=== PATIENT | male | born 1955 | race African-American/Black ===

== ENCOUNTER 2022-06-28 03:28 | Inpatient (IN) | payer OTHER ==
[2022-06-28 05:16] VITALS: BMI 26.2
[2022-06-28] MEDS ORDERED: Ondansetron ODT 4 MG TAB PO PRN (05:54)
[2022-06-28] MEDS ORDERED: Acetaminophen 650 MG Suppository PR PRN (05:54)
[2022-06-28] MEDS ORDERED: Ondansetron PF 4 MG/2 ML Vial IVP PRN (05:54)
[2022-06-28] MEDS ORDERED: Sodium Chloride 0.9% 1,000 ML IV SCH (06:00)
[2022-06-28] MEDS: Acetaminophen 325 MG TAB PO PRN (06:10)
[2022-06-28] MEDS: Morphine 4 MG/ML VIAL SLOW IVP SCH ×4 (06:10→12:36)
[2022-06-28 06:33] LABS: #Lymphocytes 1.4 thou/uL (1.20-3.40); #Monocytes 0.6 thou/uL (0.11-0.59); #Neutrophils 7.2 thou/uL (1.40-6.50); %Basophils 0.1 % (0.0-1.0); %Eosinophils 0.3 % (0.0-10.0); %Lymphocytes 15.4 % (21.0-51.0); %Monocytes 6.2 % (0.0-10.0); Hemoglobin 13.6 g/dL (14.0-18.0); Mean Corpuscular HGB CONC 34.3 g/dL (32.0-36.0); Mean Corpuscular Hemoglobin 31.8 pg (27.0-31.0); Mean Corpuscular Volume 92.7 fl (78.0-98.0); Mean Platelet Volume 6.5 fL (7.4-10.4); Platelet Count 371 10x3/uL (130-400); RBC Distribution Width 12.9 % (11.5-14.5); Red Blood Cell (RBC) Count 4.28 mill/uL (4.70-6.10); White Blood Cell (WBC) Count 9.2 10x3/uL (4.8-10.8)
[2022-06-28 06:47] LABS: Anion Gap 13 mmol/L (10-20); BUN (Urea Nitrogen) 13 mg/dL (8.4-25.7); CK (CPK) 225 U/L (30-200); Calc. Creatinine Clearance 65 mL/min (70-130); Calcium 9.1 mg/dL (7.8-10.44); Carbon Dioxide 22 mmol/L (23-31); Chloride 105 mmol/L (98-107); Estimated GFR 62; Glucose 128 mg/dL (80-115); Potassium 3.6 mmol/L (3.5-5.1); Sodium 136 mmol/L (136-145)
[2022-06-28] MEDS ORDERED: Morphine 4 MG/ML VIAL SLOW IVP PRN (10:42)
[2022-06-28 11:20] LABS: Bacteria/HPF None Seen HPF (None Seen); Bilirubin Negative (Negative); Blood, Urine Negative (Negative); Clarity Clear (Clear); Glucose, Urine (Dipstick) 70 mg/dL (Negative); Ketone, Urine Trace mg/dL (Negative); Leukocyte Negative Leu/uL (Negative); Nitrite Negative (Negative); Protein, Urine (Dipstick) Negative (Neg-Trace); RBC/HPF 0-3 HPF (0-3); Specific Gravity, Urine 1.015 (1.002-1.036); Squamous Epithelial 0-3 HPF (0-3); Urobilinogen Normal mg/dL (Less than 2); WBC/HPF 0-3 HPF (0-3); pH, Urine 6.5 (5.0-9.0)
[2022-06-28] MEDS: HYDROcodone/Acetaminophen 5/325 mg Tablet PO PRN (18:23)
[2022-06-29] MEDS: HYDROcodone/Acetaminophen 5/325 mg Tablet PO PRN ×5 (00:28→20:55)
[2022-06-29 05:39] LABS: Hemoglobin 12.2 g/dL (14.0-18.0); Platelet Count 327 10x3/uL (130-400)
[2022-06-29 06:11] LABS: Anion Gap 9 mmol/L (10-20); BUN (Urea Nitrogen) 16 mg/dL (8.4-25.7); Calc. Creatinine Clearance 66 mL/min (70-130); Carbon Dioxide 24 mmol/L (23-31); Chloride 104 mmol/L (98-107); Estimated GFR 64; Glucose 119 mg/dL (80-115); Potassium 3.7 mmol/L (3.5-5.1); Sodium 133 mmol/L (136-145)
[2022-06-29] MEDS ORDERED: hydrALAZINE 20 MG/ML VIAL SLOW IVP PRN (08:34)
[2022-06-29] MEDS: Acetaminophen 325 MG TAB PO PRN (08:39)
[2022-06-29] MEDS ORDERED: Amlodipine 5 MG TAB PO SCH (09:00)
[2022-06-29] MEDS ORDERED: Iopamidol-370 76% 500 ML MDV (1 ML CHARGE) ONE (09:05)
[2022-06-29] MEDS: Clindamycin/D5W 900 MG in Premix Bag 1 BAG IVPB SCH (18:21)
[2022-06-29] MEDS ORDERED: Acetaminophen 325 MG TAB PO SCH (22:00)
[2022-06-30] MEDS: Clindamycin/D5W 900 MG in Premix Bag 1 BAG IVPB SCH ×3 (02:24→18:33)
[2022-06-30 06:46] LABS: INR-International Normal Ratio 1.6; Prothrombin Time 19.8 sec (12.0-14.7)
[2022-06-30 07:03] LABS: Anion Gap 10 mmol/L (10-20); BUN (Urea Nitrogen) 19 mg/dL (8.4-25.7); Calc. Creatinine Clearance 65 mL/min (70-130); Calcium 9.3 mg/dL (7.8-10.44); Carbon Dioxide 24 mmol/L (23-31); Chloride 99 mmol/L (98-107); Estimated GFR 62; Glucose 133 mg/dL (80-115); Potassium 3.4 mmol/L (3.5-5.1); Sodium 130 mmol/L (136-145)
[2022-06-30 07:05] LABS: Hemoglobin 11.5 g/dL (14.0-18.0); Mean Corpuscular HGB CONC 32.9 g/dL (32.0-36.0); Mean Corpuscular Hemoglobin 30.3 pg (27.0-31.0); Platelet Count 333 10x3/uL (130-400); RBC Distribution Width 12.9 % (11.5-14.5); Red Blood Cell (RBC) Count 3.81 mill/uL (4.70-6.10); White Blood Cell (WBC) Count 17.2 10x3/uL (4.8-10.8)
[2022-06-30 08:27] LABS: Eosinophils 1 % (0-10); Lymphocytes 9 % (21-51); MDiff Complete? YES; Monocytes 11 % (0-10); Neutrophil 78 % (42-75); Platelet Morphology Comment Appears Adequate; Polychromasia SLIGHT = 2-3 cells (100X) (0-2/hpf); Reactive Lymphocytes 1 % (0-10)
[2022-06-30] MEDS: Amlodipine 5 MG TAB PO SCH (08:42)
[2022-06-30] MEDS: HYDROcodone/Acetaminophen 5/325 mg Tablet PO PRN ×2 (08:44→18:36)
[2022-06-30] MEDS: Acetaminophen 325 MG TAB PO PRN (16:13)
[2022-07-01] MEDS: Clindamycin/D5W 900 MG in Premix Bag 1 BAG IVPB SCH ×3 (02:21→18:18)
[2022-07-01] MEDS: HYDROcodone/Acetaminophen 5/325 mg Tablet PO PRN ×3 (02:21→20:35)
[2022-07-01 06:04] LABS: #Eosinphils 0.2 thou/uL (0.0-0.7); #Monocytes 2.2 thou/uL (0.11-0.59); %Basophils 0.2 % (0.0-1.0); %Eosinophils 1.2 % (0.0-10.0); %Lymphocytes 12.4 % (21.0-51.0); %Monocytes 13.1 % (0.0-10.0); %Neutrophils 73.1 % (42.0-75.0); Hemoglobin 11.2 g/dL (14.0-18.0); Mean Corpuscular HGB CONC 34.6 g/dL (32.0-36.0); Mean Corpuscular Hemoglobin 31.7 pg (27.0-31.0); Mean Corpuscular Volume 91.5 fl (78.0-98.0); Mean Platelet Volume 7.3 fL (7.4-10.4); Platelet Count 316 10x3/uL (130-400); RBC Distribution Width 12.8 % (11.5-14.5); Red Blood Cell (RBC) Count 3.53 mill/uL (4.70-6.10); White Blood Cell (WBC) Count 16.4 10x3/uL (4.8-10.8)
[2022-07-01 06:23] LABS: Anion Gap 12 mmol/L (10-20); BUN (Urea Nitrogen) 22 mg/dL (8.4-25.7); Calc. Creatinine Clearance 49 mL/min (70-130); Calcium 9.4 mg/dL (7.8-10.44); Carbon Dioxide 25 mmol/L (23-31); Chloride 97 mmol/L (98-107); Estimated GFR 45; Glucose 131 mg/dL (80-115); Sodium 130 mmol/L (136-145)
[2022-07-01] MEDS: Amlodipine 5 MG TAB PO SCH (08:58)
[2022-07-02] MEDS: Acetaminophen 325 MG TAB PO PRN (02:43)
[2022-07-02] MEDS: Clindamycin/D5W 900 MG in Premix Bag 1 BAG IVPB SCH ×3 (02:43→17:38)
[2022-07-02 05:41] LABS: #Eosinphils 0.4 thou/uL (0.0-0.7); #Lymphocytes 2.1 thou/uL (1.20-3.40); #Monocytes 1.6 thou/uL (0.11-0.59); #Neutrophils 7.4 thou/uL (1.40-6.50); %Basophils 0.2 % (0.0-1.0); %Eosinophils 3.6 % (0.0-10.0); %Lymphocytes 18.3 % (21.0-51.0); %Monocytes 14.1 % (0.0-10.0); %Neutrophils 63.8 % (42.0-75.0); Hemoglobin 10.3 g/dL (14.0-18.0); Mean Corpuscular HGB CONC 33.9 g/dL (32.0-36.0); Mean Corpuscular Hemoglobin 31.2 pg (27.0-31.0); Mean Corpuscular Volume 91.9 fl (78.0-98.0); Mean Platelet Volume 6.9 fL (7.4-10.4); Platelet Count 340 10x3/uL (130-400); RBC Distribution Width 12.7 % (11.5-14.5); Red Blood Cell (RBC) Count 3.31 mill/uL (4.70-6.10); White Blood Cell (WBC) Count 11.6 10x3/uL (4.8-10.8)
[2022-07-02] MEDS: HYDROcodone/Acetaminophen 5/325 mg Tablet PO PRN ×2 (07:39→17:41)
[2022-07-02] MEDS: Amlodipine 5 MG TAB PO SCH (09:21)
[2022-07-03] MEDS: Clindamycin/D5W 900 MG in Premix Bag 1 BAG IVPB SCH ×2 (02:39→10:53)
[2022-07-03] MEDS: HYDROcodone/Acetaminophen 5/325 mg Tablet PO PRN (02:41)
[2022-07-03] MEDS: Amlodipine 5 MG TAB PO SCH (08:03)
[2022-07-03 12:05] VITALS: BP 118/76; TEMP 98.7
== END 2022-07-03 15:00 | disposition home or self-care (01) | DRG 605 ==
LOC: SURG A 03:28 → OBSVTOIN 06-29 15:13
PROVIDERS: ADMIT Student in an Organized Health Care Education/Training Program; ATTEND Internal Medicine
DX: S70.12XA Contusion of left thigh, initial encounter (principal); I69.354 Hemiplegia and hemiparesis following cerebral infarction affecting left non-dominant side; L03.116 Cellulitis of left lower limb; E87.1 Hypo-osmolality and hyponatremia; I10 Essential (primary) hypertension; E78.5 Hyperlipidemia, unspecified; J44.9 Chronic obstructive pulmonary disease, unspecified; W19.XXXA Unspecified fall, initial encounter; Y92.89 Other specified places as the place of occurrence of the external cause; Z79.01 Long term (current) use of anticoagulants
CPT/HCPCS: 36415; 36416; 72193; 80048; 81001; 82550; 85014; 85018; 85025; 85049; 85610; 85652; 86140; 87040; 96374; 96375; 96376; G0378; J2270; J2405; J3490; J7050; Q9967

== ENCOUNTER 2024-01-30 00:50 | Inpatient (IN) | payer OTHER ==
[2024-01-30 01:12] LABS: #Basophils 0.12 10x3/uL (0.0-0.2); %Basophils 1.4 % (0.0-1.0); %Eosinophils 1.6 % (0.0-10.0); %Lymphocytes 19.4 % (21.0-51.0); %Monocytes 5.8 % (0.0-10.0); %Neutrophils 71.5 % (42.0-75.0); Hematocrit 46.9 % (42.0-52.0); Hemoglobin 15.6 g/dL (14.0-18.0); Mean Corpuscular HGB CONC 33.3 g/dL (32.0-36.0); Mean Corpuscular Hemoglobin 29.7 pg (27.0-31.0); Mean Corpuscular Volume 89.3 fL (78.0-98.0); Mean Platelet Volume 8.7 fL (7.4-10.4); Platelet Count 346 10x3/uL (130-400); RBC Distribution Width 13.2 % (11.5-14.5); Red Blood Cell (RBC) Count 5.25 mill/uL (4.70-6.10)
[2024-01-30 01:24] LABS: Prothrombin Time 13.6 sec (12.0-14.7)
[2024-01-30 01:25] LABS: PTT 34.7 sec (22.9-36.1)
[2024-01-30 01:33] LABS: Troponin I Less than 0.010 ng/mL (< 0.028)
[2024-01-30] MEDS ORDERED: Labetalol HCl 100 MG/20 ML VIAL ONE (01:48)
[2024-01-30 02:02] LABS: ALT (SGPT) 9 U/L (8-55); AST (SGOT) 16 U/L (5-34); Albumin 4.1 g/dL (3.4-4.8); Alkaline Phosphatase 87 U/L (40-110); Anion Gap 18 mmol/L (10-20); BUN (Urea Nitrogen) 11 mg/dL (8.4-25.7); Bilirubin, Total 0.5 mg/dL (0.2-1.2); Calc. Creatinine Clearance 0 mL/min (70-130); Calcium 9.6 mg/dL (7.8-10.44); Carbon Dioxide 18 mmol/L (23-31); Chloride 102 mmol/L (98-107); Estimated GFR 69; Globulin 5.1 g/dL (2.4-3.5); Glucose 169 mg/dL (80-115); Potassium 3.9 mmol/L (3.5-5.1); Protein, Total 9.2 g/dL (5.8-8.1); Sodium 134 mmol/L (136-145)
[2024-01-30] MEDS ORDERED: Atorvastatin Calcium 40 MG TAB PO SCH (03:00)
[2024-01-30 04:15] LABS: %Basophils 1.1 % (0.0-1.0); %Eosinophils 0.3 % (0.0-10.0); %Lymphocytes 19.8 % (21.0-51.0); %Monocytes 4.9 % (0.0-10.0); %Neutrophils 73.6 % (42.0-75.0); Hematocrit 46.5 % (42.0-52.0); Hemoglobin 15.5 g/dL (14.0-18.0); Mean Corpuscular HGB CONC 33.3 g/dL (32.0-36.0); Mean Corpuscular Hemoglobin 29.2 pg (27.0-31.0); Mean Corpuscular Volume 87.6 fL (78.0-98.0); Mean Platelet Volume 9.1 fL (7.4-10.4); Platelet Count 394 10x3/uL (130-400); Red Blood Cell (RBC) Count 5.31 mill/uL (4.70-6.10)
[2024-01-30] MEDS: Lactated Ringer's 1,000 ML IV SCH (04:15)
[2024-01-30 04:55] LABS: Anion Gap 13 mmol/L (10-20); BUN (Urea Nitrogen) 10 mg/dL (8.4-25.7); Calc. Creatinine Clearance 84 mL/min (70-130); Calcium 9.5 mg/dL (7.8-10.44); Carbon Dioxide 24 mmol/L (23-31); Cardiac Risk 5.8 (Less than 4.5); Chloride 100 mmol/L (98-107); Cholesterol 226 mg/dl (< 200 Desired); Estimated GFR 87; Glucose 152 mg/dL (80-115); HDL Cholesterol 39 mg/dL (>60 Neg Risk); LDL Cholesterol, Calculated 167 mg/dL; Sodium 133 mmol/L (136-145); Triglycerides 98 mg/dL (Less than 150)
[2024-01-30 06:14] LABS: Hemoglobin A1c 5.3 % (4.0-6.0)
[2024-01-30] MEDS ORDERED: EPINEPHrine 1 MG/10 ML Abboject SYRINGE ONE (07:32)
[2024-01-30] MEDS ORDERED: Calcium Chloride 1 GM/10 ML Abboject SYRINGE ONE (07:32)
[2024-01-30] MEDS ORDERED: Sodium Bicarb 50 MEQ/50 ML Abboject 8.4% SYRINGE ONE (07:32)
[2024-01-30 08:03] LABS: #Basophils 0.08 10x3/uL (0.0-0.2); #Eosinophils Less than 0.03 10x3/uL (0.0-0.7); %Basophils 0.8 % (0.0-1.0); %Eosinophils 0.2 % (0.0-10.0); %Lymphocytes 18.7 % (21.0-51.0); %Monocytes 4.5 % (0.0-10.0); %Neutrophils 73.1 % (42.0-75.0); Hematocrit 49.7 % (42.0-52.0); Hemoglobin 16.3 g/dL (14.0-18.0); Mean Corpuscular HGB CONC 32.8 g/dL (32.0-36.0); Mean Corpuscular Hemoglobin 29.6 pg (27.0-31.0); Mean Corpuscular Volume 90.4 fL (78.0-98.0); Mean Platelet Volume 8.6 fL (7.4-10.4); Platelet Count 343 10x3/uL (130-400)
[2024-01-30] MEDS: Lorazepam 2 MG/ML VIAL SLOW IVP PRN (08:10)
[2024-01-30] MEDS ORDERED: Propofol BOLUS 1,000 MG/100 ML VIAL IV PRN (08:15)
[2024-01-30] MEDS ORDERED: Fentanyl BOLUS 250 ML IVPB PRN (08:15)
[2024-01-30] MEDS ORDERED: DISCONTINUE PREVIOUS NARCOTIC PAIN MEDICATIONS AND BENZODIAZEPINES FS SCH (08:15)
[2024-01-30 08:23] LABS: Actual Bicarbonate (HCO3a) 23.3 mEq/L (22-28); Base Excess (BEa) -1.7 mEq/L (-2.0 to +3.0); CO2 Tension 40.8 mmHg (35.0-45.0); Calcium, Ionized (arterial) 1.37 mmol/L (1.12-1.30); Carboxyhemoglobin (COHb) 1.5 gm% (0.0-3.0); Hematocrit-ABG 48 % (42.0-52.0); Hemoglobin (Hb) 16.3 g/dL (14.0-18.0); pH, Arterial 7.375 (7.35-7.45)
[2024-01-30 08:25] LABS: O2 Tension (PaO2), arterial 59.1 mmHg (> 80.0); Puncture Site Right Radial artery
[2024-01-30] MEDS: Lorazepam 2 MG/ML VIAL ONE (08:25)
[2024-01-30] MEDS: Ventilator Sedation Protocol 1 EACH FS ONE (08:25)
[2024-01-30] MEDS: Propofol 1,000 MG/100 ML VIAL IV ONE (08:25)
[2024-01-30 08:26] LABS: Troponin I 0.012 ng/mL (< 0.028)
[2024-01-30] MEDS: Propofol 1,000 MG/100 ML VIAL IV PRN (08:26)
[2024-01-30 08:32] LABS: ALT (SGPT) 56 U/L (8-55); AST (SGOT) 67 U/L (5-34); Albumin 4.1 g/dL (3.4-4.8); Alkaline Phosphatase 101 U/L (40-110); Anion Gap 16 mmol/L (10-20); BUN (Urea Nitrogen) 11 mg/dL (8.4-25.7); Bilirubin, Total 0.4 mg/dL (0.2-1.2); Calc. Creatinine Clearance 65 mL/min (70-130); Calcium 12.2 mg/dL (7.8-10.44); Carbon Dioxide 22 mmol/L (23-31); Chloride 96 mmol/L (98-107); Estimated GFR 64; Globulin 5.6 g/dL (2.4-3.5); Glucose 222 mg/dL (80-115); Potassium 4.4 mmol/L (3.5-5.1); Protein, Total 9.7 g/dL (5.8-8.1); Sodium 130 mmol/L (136-145)
[2024-01-30] MEDS ORDERED: Dextrose 5% in Water 1,000 ML IV PRN (08:49)
[2024-01-30] MEDS ORDERED: Glucagon 1 MG/ML KIT IM PRN (08:49)
[2024-01-30] MEDS ORDERED: Aspirin 81 mg Enteric Coated Tablet PO SCH (09:00)
[2024-01-30] MEDS: Sodium Chloride 0.9% 1,000 ML IV SCH (09:16)
[2024-01-30] MEDS: Fentanyl CADD 100 ML IV SCH (09:16)
[2024-01-30] MEDS: Aspirin 300 MG Suppository PR SCH (09:24)
[2024-01-30] MEDS: Famotidine/PF 20 mg/2ml Vial SLOW IVP SCH (09:24)
[2024-01-30 11:02] LABS: Lactic Acid 2.08 mmol/L (0.5-2.2)
[2024-01-30] MEDS ORDERED: Iopamidol 370 76% 100 ML VIAL ONE (12:40)
[2024-01-30] MEDS: Atorvastatin Calcium 40 MG TAB PO SCH (19:16)
[2024-01-31 05:56] LABS: #Basophils 0.08 10x3/uL (0.0-0.2); %Basophils 0.5 % (0.0-1.0); %Eosinophils 0.4 % (0.0-10.0); %Lymphocytes 10.4 % (21.0-51.0); %Neutrophils 76.1 % (42.0-75.0); Hematocrit 44.8 % (42.0-52.0); Hemoglobin 14.9 g/dL (14.0-18.0); Mean Corpuscular HGB CONC 33.3 g/dL (32.0-36.0); Mean Corpuscular Hemoglobin 29.3 pg (27.0-31.0); Mean Corpuscular Volume 88.2 fL (78.0-98.0); Mean Platelet Volume 8.8 fL (7.4-10.4); Platelet Count 295 10x3/uL (130-400); RBC Distribution Width 13.4 % (11.5-14.5); Red Blood Cell (RBC) Count 5.08 mill/uL (4.70-6.10)
[2024-01-31 06:21] LABS: Anion Gap 18 mmol/L (10-20); BUN (Urea Nitrogen) 23 mg/dL (8.4-25.7); Calc. Creatinine Clearance 35 mL/min (70-130); Calcium 9.5 mg/dL (7.8-10.44); Carbon Dioxide 19 mmol/L (23-31); Chloride 101 mmol/L (98-107); Estimated GFR 30; Glucose 96 mg/dL (80-115); Potassium 4.1 mmol/L (3.5-5.1); Sodium 134 mmol/L (136-145)
[2024-01-31 07:48] LABS: Actual Bicarbonate (HCO3a) 18.8 mEq/L (22-28); Base Excess (BEa) -2.2 mEq/L (-2.0 to +3.0); CO2 Tension 24.2 mmHg (35.0-45.0); Calcium, Ionized (arterial) 1.14 mmol/L (1.12-1.30); Carboxyhemoglobin (COHb) 0.8 gm% (0.0-3.0); Hematocrit-ABG 44 % (42.0-52.0); Hemoglobin (Hb) 14.9 g/dL (14.0-18.0); O2 Tension (PaO2), arterial 68.4 mmHg (> 80.0); Potassium - ABG Lab 3.95 mmol/L (3.70-5.30); pH, Arterial 7.509 (7.35-7.45)
[2024-01-31] MEDS: Dexmedetomidine In 0.9 % NaCl 100 ML IV SCH (08:41)
[2024-01-31] MEDS: Famotidine/PF 20 mg/2ml Vial SLOW IVP SCH (08:42)
[2024-01-31] MEDS: Aspirin 325 MG TAB PER TUBE SCH (08:42)
[2024-01-31] MEDS: Scopolamine 1 mg/72 hour Patch TOP SCH (08:42)
[2024-01-31] MEDS: cefTRIAXone\\ROCEPHIN 2 GM in Sodium Chloride 0.9% 100 ML IVPB SCH (09:02)
[2024-01-31] MEDS: Dextrose 50% Abboject 50 ML SYRINGE SLOW IVP PRN (16:29)
[2024-02-01 07:32] LABS: #Basophils 0.08 10x3/uL (0.0-0.2); %Basophils 0.5 % (0.0-1.0); %Eosinophils 0.3 % (0.0-10.0); %Lymphocytes 7.4 % (21.0-51.0); %Monocytes 12.1 % (0.0-10.0); %Neutrophils 79.2 % (42.0-75.0); Hematocrit 40.2 % (42.0-52.0); Hemoglobin 13.1 g/dL (14.0-18.0); Mean Corpuscular HGB CONC 32.6 g/dL (32.0-36.0); Mean Corpuscular Hemoglobin 29.8 pg (27.0-31.0); Mean Corpuscular Volume 91.6 fL (78.0-98.0); Mean Platelet Volume 9.5 fL (7.4-10.4); Platelet Count 234 10x3/uL (130-400); RBC Distribution Width 13.5 % (11.5-14.5); Red Blood Cell (RBC) Count 4.39 mill/uL (4.70-6.10)
[2024-02-01 07:52] LABS: Anion Gap 12 mmol/L (10-20); BUN (Urea Nitrogen) 28 mg/dL (8.4-25.7); Calc. Creatinine Clearance 48 mL/min (70-130); Calcium 8.7 mg/dL (7.8-10.44); Carbon Dioxide 19 mmol/L (23-31); Chloride 106 mmol/L (98-107); Estimated GFR 44; Glucose 109 mg/dL (80-115); Potassium 4.3 mmol/L (3.5-5.1); Sodium 133 mmol/L (136-145)
[2024-02-01] MEDS: Midodrine HCl 5 MG TAB PO SCH ×2 (12:30→15:11)
[2024-02-01] MEDS: Lactated Ringer's 500 ML IV SCH (12:30)
[2024-02-02] MEDS: Glycopyrrolate 0.4 MG/ 2 ML VIAL SLOW IVP SCH (09:11)
[2024-02-03] MEDS ORDERED: Rivaroxaban 10 MG TAB PO SCH (09:00)
[2024-02-03] MEDS: Morphine 2 MG/ML VIAL SLOW IVP PRN (11:52)
[2024-02-03] MEDS: Lorazepam 2 MG/ML VIAL ONE (11:59)
[2024-02-03] MEDS: Lorazepam 2 MG/ML VIAL SLOW IVP SCH (13:25)
[2024-02-03] MEDS: Acetaminophen 325 MG TAB PO PRN (18:26)
[2024-02-03] MEDS: Insulin Lispro 100 UNIT/ML 10 ML VIAL SC PRN (21:20)
[2024-02-04] MEDS: Enoxaparin 40 MG (0.4 mL) SYRINGE SC SCH (09:00)
[2024-02-05] MEDS: Piperacillin/Tazobactam 3.375 GM in Sodium Chloride 0.9% 100 ML IVPB SCH ×2 (11:46→16:17)
[2024-02-05] MEDS ORDERED: Piperacillin/Tazobactam 3.375 GM in Sodium Chloride 0.9% 100 ML IVPB SCH (12:00)
[2024-02-07 04:24] LABS: #Basophils 0.12 10x3/uL (0.0-0.2); %Basophils 0.9 % (0.0-1.0); %Eosinophils 3.9 % (0.0-10.0); %Monocytes 11.9 % (0.0-10.0); %Neutrophils 66.2 % (42.0-75.0); Hematocrit 35.7 % (42.0-52.0); Hemoglobin 11.2 g/dL (14.0-18.0); Mean Corpuscular HGB CONC 31.4 g/dL (32.0-36.0); Mean Corpuscular Hemoglobin 28.7 pg (27.0-31.0); Mean Corpuscular Volume 91.5 fL (78.0-98.0); Mean Platelet Volume 10.2 fL (7.4-10.4); Platelet Count 382 10x3/uL (130-400); RBC Distribution Width 14.4 % (11.5-14.5)
[2024-02-07 04:42] LABS: ALT (SGPT) 50 U/L (8-55); AST (SGOT) 51 U/L (5-34); Alkaline Phosphatase 199 U/L (40-110); Anion Gap 13 mmol/L (10-20); BUN (Urea Nitrogen) 21 mg/dL (8.4-25.7); Bilirubin, Total 0.7 mg/dL (0.2-1.2); Calc. Creatinine Clearance 103 mL/min (70-130); Calcium 9.1 mg/dL (7.8-10.44); Carbon Dioxide 25 mmol/L (23-31); Chloride 103 mmol/L (98-107); Estimated GFR 96; Globulin 4.7 g/dL (2.4-3.5); Glucose 123 mg/dL (80-115); Protein, Total 6.7 g/dL (5.8-8.1); Sodium 137 mmol/L (136-145)
[2024-02-07] MEDS: Midodrine HCl 5 MG TAB PO SCH ×2 (09:44→14:55)
[2024-02-07] MEDS: Glycopyrrolate 0.2 MG/ML 5 ML SYRINGE SLOW IVP SCH (10:06)
[2024-02-07] MEDS ORDERED: Glycopyrrolate 0.4 MG/ 2 ML VIAL SLOW IVP SCH ×2 (11:15→11:45)
[2024-02-07] MEDS: Glycopyrrolate 0.4 MG/ 2 ML VIAL SLOW IVP SCH ×2 (11:18→14:53)
[2024-02-07] MEDS ORDERED: Glycopyrrolate 0.2 MG/ML 5 ML SYRINGE SLOW IVP SCH (14:00)
[2024-02-07] MEDS ORDERED: Etomidate 40 MG (20 mL) VIAL ONE (16:15)
[2024-02-07] MEDS: Etomidate 40 MG (20 mL) VIAL IVP SCH (16:17)
[2024-02-07] MEDS: PROPOFOL 200 MG/20 ML VIAL IV SCH (16:20)
[2024-02-07] MEDS: fentaNYL 50 mcg/mL 1 mL Vial SLOW IVP SCH (16:24)
[2024-02-07] MEDS ORDERED: Fentanyl BOLUS 250 ML IVPB PRN (16:45)
[2024-02-07] MEDS ORDERED: DISCONTINUE PREVIOUS NARCOTIC PAIN MEDICATIONS AND BENZODIAZEPINES FS SCH (16:45)
[2024-02-07] MEDS ORDERED: Propofol BOLUS 1,000 MG/100 ML VIAL IV PRN (16:45)
[2024-02-07] MEDS ORDERED: Fentanyl CADD 100 ML IV SCH (16:45)
[2024-02-07] MEDS: Piperacillin/Tazobactam 3.375 GM in Sodium Chloride 0.9% 100 ML IVPB SCH (19:21)
[2024-02-07] MEDS: Ventilator Sedation Protocol 1 EACH FS ONE (19:33)
[2024-02-07] MEDS: fentaNYL 50 mcg/mL 1 mL Vial ONE (19:34)
[2024-02-07] MEDS: Propofol 1,000 MG/100 ML VIAL IV ONE (19:34)
[2024-02-07] MEDS: Famotidine/PF 20 mg/2ml Vial SLOW IVP SCH (21:46)
[2024-02-08] MEDS: Propofol 1,000 MG/100 ML VIAL IV PRN (02:21)
[2024-02-08 04:37] LABS: #Basophils 0.11 10x3/uL (0.0-0.2); %Basophils 0.8 % (0.0-1.0); %Eosinophils 4.2 % (0.0-10.0); %Lymphocytes 14.4 % (21.0-51.0); %Monocytes 10.3 % (0.0-10.0); %Neutrophils 67.7 % (42.0-75.0); Hematocrit 33.5 % (42.0-52.0); Hemoglobin 10.9 g/dL (14.0-18.0); Mean Corpuscular HGB CONC 32.5 g/dL (32.0-36.0); Mean Corpuscular Hemoglobin 29.5 pg (27.0-31.0); Mean Corpuscular Volume 90.5 fL (78.0-98.0); Mean Platelet Volume 9.5 fL (7.4-10.4); Platelet Count 479 10x3/uL (130-400); RBC Distribution Width 14.2 % (11.5-14.5)
[2024-02-08 04:44] LABS: ALT (SGPT) 65 U/L (8-55); AST (SGOT) 81 U/L (5-34); Albumin 1.9 g/dL (3.4-4.8); Alkaline Phosphatase 211 U/L (40-110); Anion Gap 11 mmol/L (10-20); BUN (Urea Nitrogen) 20 mg/dL (8.4-25.7); Bilirubin, Total 0.7 mg/dL (0.2-1.2); Calc. Creatinine Clearance 105 mL/min (70-130); Calcium 8.7 mg/dL (7.8-10.44); Carbon Dioxide 24 mmol/L (23-31); Chloride 103 mmol/L (98-107); Estimated GFR 96; Globulin 4.8 g/dL (2.4-3.5); Glucose 126 mg/dL (80-115); Potassium 3.8 mmol/L (3.5-5.1); Protein, Total 6.7 g/dL (5.8-8.1); Sodium 134 mmol/L (136-145)
[2024-02-08 07:00] LABS: Actual Bicarbonate (HCO3a) 27.9 mEq/L (22-28); Base Excess (BEa) 5.2 mEq/L (-2.0 to +3.0); CO2 Tension 34.1 mmHg (35.0-45.0); Calcium, Ionized (arterial) 1.16 mmol/L (1.12-1.30); Carboxyhemoglobin (COHb) 0.1 gm% (0.0-3.0); Hematocrit-ABG 35 % (42.0-52.0); Hemoglobin (Hb) 11.8 g/dL (14.0-18.0); O2 Tension (PaO2), arterial 71.6 mmHg (> 80.0); Potassium - ABG Lab 3.93 mmol/L (3.70-5.30); Puncture Site Right Radial artery
[2024-02-08 07:01] LABS: ALV-art Gradient 170.975 mmHg (0-20)
[2024-02-08] MEDS ORDERED: CEFAZOLIN 2 GM in Sodium Chloride 0.9% 100 ML IVPB SCH (09:00)
[2024-02-08] MEDS: Midazolam HCl 2 mg/2 ml Vial SLOW IVP SCH (09:40)
[2024-02-08] MEDS: Sterile Water 10 ML VIAL FS SCH (09:43)
[2024-02-08] MEDS: Vecuronium 10 MG VIAL IV SCH (09:43)
[2024-02-08] MEDS: Lidocaine 1% w/Epinephrine 1:100K 20 ML VIAL ONE (09:45)
[2024-02-08] MEDS: Aspirin Chewable 81 MG TAB PER TUBE SCH (10:08)
[2024-02-08] MEDS: hydrALAZINE 20 MG/ML VIAL ONE (10:09)
[2024-02-08] MEDS: hydrALAZINE 20 MG/ML VIAL SLOW IVP PRN (12:48)
[2024-02-08] MEDS: Morphine 2 MG/ML VIAL SLOW IVP PRN (15:35)
[2024-02-08] MEDS: Lorazepam 2 MG/ML VIAL SLOW IVP PRN (17:50)
[2024-02-09 05:38] LABS: #Basophils 0.06 10x3/uL (0.0-0.2); %Basophils 0.3 % (0.0-1.0); %Eosinophils 1.7 % (0.0-10.0); %Lymphocytes 7.7 % (21.0-51.0); %Monocytes 5.8 % (0.0-10.0); %Neutrophils 83.2 % (42.0-75.0); Hemoglobin 11.3 g/dL (14.0-18.0); Mean Corpuscular HGB CONC 33.2 g/dL (32.0-36.0); Mean Corpuscular Hemoglobin 29.4 pg (27.0-31.0); Mean Corpuscular Volume 88.3 fL (78.0-98.0); Mean Platelet Volume 9.6 fL (7.4-10.4); Platelet Count 518 10x3/uL (130-400); RBC Distribution Width 14.3 % (11.5-14.5); Red Blood Cell (RBC) Count 3.85 mill/uL (4.70-6.10)
[2024-02-09 05:54] LABS: Anion Gap 11 mmol/L (10-20); BUN (Urea Nitrogen) 21 mg/dL (8.4-25.7); Calc. Creatinine Clearance 85 mL/min (70-130); Calcium 8.6 mg/dL (7.8-10.44); Carbon Dioxide 24 mmol/L (23-31); Chloride 102 mmol/L (98-107); Estimated GFR 86; Glucose 124 mg/dL (80-115); Potassium 4.1 mmol/L (3.5-5.1); Sodium 133 mmol/L (136-145)
[2024-02-09 07:54] LABS: Actual Bicarbonate (HCO3a) 26.7 mEq/L (22-28); Base Excess (BEa) 3.5 mEq/L (-2.0 to +3.0); CO2 Tension 35.3 mmHg (35.0-45.0); Calcium, Ionized (arterial) 1.18 mmol/L (1.12-1.30); Carboxyhemoglobin (COHb) 0.6 gm% (0.0-3.0); Hematocrit-ABG 36 % (42.0-52.0); Hemoglobin (Hb) 12.2 g/dL (14.0-18.0); O2 Tension (PaO2), arterial 70.7 mmHg (> 80.0); Potassium - ABG Lab 3.95 mmol/L (3.70-5.30); pH, Arterial 7.496 (7.35-7.45)
[2024-02-09 07:57] LABS: ALV-art Gradient 170.375 mmHg (0-20); Puncture Site Right Radial artery
[2024-02-09] MEDS: Enoxaparin 40 MG (0.4 mL) SYRINGE SC SCH (09:01)
[2024-02-09] MEDS: Amlodipine 5 MG TAB PO SCH (11:35)
[2024-02-09] MEDS: Glycopyrrolate 0.2 MG/ML 5 ML SYRINGE SLOW IVP SCH (11:35)
[2024-02-09] MEDS: Furosemide 40 MG (4 mL) VIAL SLOW IVP SCH (11:35)
[2024-02-09] MEDS: Furosemide 40 MG (4 mL) VIAL ONE (11:36)
[2024-02-10 04:07] LABS: #Basophils 0.07 10x3/uL (0.0-0.2); %Basophils 0.3 % (0.0-1.0); %Eosinophils 1.7 % (0.0-10.0); %Lymphocytes 9.3 % (21.0-51.0); %Neutrophils 80.6 % (42.0-75.0); Hematocrit 31.4 % (42.0-52.0); Hemoglobin 10.2 g/dL (14.0-18.0); Mean Corpuscular HGB CONC 32.5 g/dL (32.0-36.0); Mean Corpuscular Hemoglobin 29.5 pg (27.0-31.0); Mean Corpuscular Volume 90.8 fL (78.0-98.0); Mean Platelet Volume 9.3 fL (7.4-10.4); Platelet Count 496 10x3/uL (130-400); RBC Distribution Width 14.1 % (11.5-14.5); Red Blood Cell (RBC) Count 3.46 mill/uL (4.70-6.10)
[2024-02-10 04:22] LABS: Anion Gap 12 mmol/L (10-20); BUN (Urea Nitrogen) 20 mg/dL (8.4-25.7); Calc. Creatinine Clearance 90 mL/min (70-130); Calcium 8.7 mg/dL (7.8-10.44); Carbon Dioxide 23 mmol/L (23-31); Chloride 101 mmol/L (98-107); Estimated GFR 92; Glucose 140 mg/dL (80-115); Potassium 3.5 mmol/L (3.5-5.1); Sodium 132 mmol/L (136-145)
[2024-02-10] MEDS ORDERED: Docusate 100 MG CAP PO PRN (07:09)
[2024-02-10] MEDS: Amlodipine 5 MG TAB PO SCH (08:33)
[2024-02-10] MEDS: Polyethylene Glycol 3350 17 GM Packet PO SCH (08:34)
[2024-02-10] MEDS ORDERED: Electrolyte Replacement Protocol 1 EACH FS PRN (10:46)
[2024-02-10] MEDS: Furosemide 40 MG (4 mL) VIAL SLOW IVP SCH (10:59)
[2024-02-10] MEDS: Potassium Bicarbonate/Cit Ac 20 MEQ TAB PER TUBE SCH (11:02)
[2024-02-11 03:12] LABS: #Basophils 0.08 10x3/uL (0.0-0.2); %Basophils 0.4 % (0.0-1.0); %Eosinophils 2.1 % (0.0-10.0); %Lymphocytes 8.9 % (21.0-51.0); %Monocytes 8.1 % (0.0-10.0); %Neutrophils 79.9 % (42.0-75.0); Hematocrit 29.7 % (42.0-52.0); Hemoglobin 9.8 g/dL (14.0-18.0); Mean Corpuscular Hemoglobin 29.3 pg (27.0-31.0); Mean Corpuscular Volume 88.9 fL (78.0-98.0); Mean Platelet Volume 9.2 fL (7.4-10.4); Platelet Count 502 10x3/uL (130-400); RBC Distribution Width 13.9 % (11.5-14.5); Red Blood Cell (RBC) Count 3.34 mill/uL (4.70-6.10)
[2024-02-11 03:35] LABS: Anion Gap 11 mmol/L (10-20); BUN (Urea Nitrogen) 19 mg/dL (8.4-25.7); Calc. Creatinine Clearance 95 mL/min (70-130); Calcium 8.6 mg/dL (7.8-10.44); Carbon Dioxide 27 mmol/L (23-31); Chloride 98 mmol/L (98-107); Estimated GFR 94; Glucose 123 mg/dL (80-115); Potassium 3.7 mmol/L (3.5-5.1); Sodium 132 mmol/L (136-145)
[2024-02-11] MEDS ORDERED: Docusate Sodium 100 MG/10 ML UDCUP PER TUBE PRN (04:23)
[2024-02-11] MEDS: Acetaminophen 650 MG/20.3 ML UDCUP PER TUBE PRN (04:54)
[2024-02-11] MEDS: Polyethylene Glycol 3350 17 GM Packet PER TUBE SCH (08:05)
[2024-02-11] MEDS: Amlodipine 5 MG TAB PER TUBE SCH (08:06)
[2024-02-11] MEDS ORDERED: Polyethylene Glycol 3350 17 GM Packet PER TUBE SCH (09:00)
[2024-02-11] MEDS: [UNRECOGNIZED DRUG - OTHER] SLOW IVP SCH (11:08)
[2024-02-11] MEDS ORDERED: Meropenem 1 GM in Sodium Chloride 0.9% 100 ML IVPB SCH (14:00)
[2024-02-11] MEDS: Glycopyrrolate 0.4 MG/ 2 ML VIAL SLOW IVP SCH (15:24)
[2024-02-11] MEDS: Piperacillin/Tazobactam 3.375 GM in Sodium Chloride 0.9% 100 ML IVPB SCH (17:20)
[2024-02-11] MEDS: Atorvastatin Calcium 40 MG TAB PER TUBE SCH (20:11)
[2024-02-12 06:48] LABS: #Basophils 0.07 10x3/uL (0.0-0.2); %Basophils 0.4 % (0.0-1.0); %Eosinophils 3.4 % (0.0-10.0); %Lymphocytes 12.3 % (21.0-51.0); %Monocytes 8.2 % (0.0-10.0); %Neutrophils 75.1 % (42.0-75.0); Hematocrit 29.5 % (42.0-52.0); Hemoglobin 9.8 g/dL (14.0-18.0); Mean Corpuscular HGB CONC 33.2 g/dL (32.0-36.0); Mean Corpuscular Hemoglobin 29.3 pg (27.0-31.0); Mean Corpuscular Volume 88.1 fL (78.0-98.0); Mean Platelet Volume 9.2 fL (7.4-10.4); Platelet Count 576 10x3/uL (130-400); RBC Distribution Width 13.7 % (11.5-14.5); Red Blood Cell (RBC) Count 3.35 mill/uL (4.70-6.10)
[2024-02-12] MEDS: Tranexamic Acid 1,000 MG/10 ML VIAL IVP SCH (21:48)
[2024-02-12] MEDS: Tranexamic Acid 1,000 MG in Sodium Chloride 0.9% 100 ML IVPB SCH (21:48)
[2024-02-13] MEDS: Lidocaine 1% w/Epinephrine 1:100K 20 ML VIAL ONE (09:45)
[2024-02-13] MEDS: Sodium Chloride 0.9% 500 ML IV SCH (23:08)
[2024-02-14] MEDS: Meropenem 1 GM in Sodium Chloride 0.9% 100 ML IVPB SCH ×2 (15:58→22:13)
[2024-02-14] MEDS: Famotidine 20 MG TAB PER TUBE SCH (20:36)
[2024-02-15 04:53] LABS: %Basophils 0.7 % (0.0-1.0); %Eosinophils 3.5 % (0.0-10.0); %Lymphocytes 15.6 % (21.0-51.0); %Monocytes 10.3 % (0.0-10.0); Hematocrit 29.1 % (42.0-52.0); Hemoglobin 9.8 g/dL (14.0-18.0); Mean Corpuscular HGB CONC 33.7 g/dL (32.0-36.0); Mean Corpuscular Hemoglobin 29.3 pg (27.0-31.0); Mean Corpuscular Volume 87.1 fL (78.0-98.0); Mean Platelet Volume 9.2 fL (7.4-10.4); Platelet Count 700 10x3/uL (130-400); RBC Distribution Width 13.6 % (11.5-14.5); Red Blood Cell (RBC) Count 3.34 mill/uL (4.70-6.10)
[2024-02-15 05:17] LABS: Anion Gap 12 mmol/L (10-20); BUN (Urea Nitrogen) 22 mg/dL (8.4-25.7); Calc. Creatinine Clearance 103 mL/min (70-130); Calcium 8.9 mg/dL (7.8-10.44); Carbon Dioxide 25 mmol/L (23-31); Chloride 100 mmol/L (98-107); Estimated GFR 96; Glucose 108 mg/dL (80-115); Potassium 3.8 mmol/L (3.5-5.1); Sodium 133 mmol/L (136-145)
[2024-02-15] MEDS ORDERED: Electrolyte Replacement Protocol FS PRN (09:00)
[2024-02-16] MEDS: Ondansetron PF 4 MG/2 ML Vial IVP PRN (04:01)
[2024-02-16 05:14] LABS: #Basophils 0.07 10x3/uL (0.0-0.2); %Basophils 0.5 % (0.0-1.0); %Eosinophils 3.7 % (0.0-10.0); %Lymphocytes 18.2 % (21.0-51.0); %Monocytes 10.5 % (0.0-10.0); %Neutrophils 66.3 % (42.0-75.0); Hematocrit 30.8 % (42.0-52.0); Hemoglobin 9.9 g/dL (14.0-18.0); Mean Corpuscular HGB CONC 32.1 g/dL (32.0-36.0); Mean Corpuscular Hemoglobin 28.6 pg (27.0-31.0); Mean Platelet Volume 8.7 fL (7.4-10.4); Platelet Count 790 10x3/uL (130-400); RBC Distribution Width 13.5 % (11.5-14.5); Red Blood Cell (RBC) Count 3.46 mill/uL (4.70-6.10)
[2024-02-16 05:30] LABS: Anion Gap 11 mmol/L (10-20); BUN (Urea Nitrogen) 22 mg/dL (8.4-25.7); Calc. Creatinine Clearance 95 mL/min (70-130); Calcium 9.5 mg/dL (7.8-10.44); Carbon Dioxide 27 mmol/L (23-31); Chloride 100 mmol/L (98-107); Estimated GFR 95; Glucose 114 mg/dL (80-115); Potassium 4.2 mmol/L (3.5-5.1); Sodium 134 mmol/L (136-145)
[2024-02-18] MEDS ORDERED: Morphine 2 MG/ML VIAL SLOW IVP PRN (06:00)
[2024-02-18] MEDS ORDERED: Lorazepam 2 MG/ML VIAL SLOW IVP PRN (06:00)
[2024-02-20 05:21] LABS: %Basophils 0.8 % (0.0-1.0); %Eosinophils 4.2 % (0.0-10.0); %Lymphocytes 20.6 % (21.0-51.0); %Monocytes 9.4 % (0.0-10.0); %Neutrophils 64.5 % (42.0-75.0); Hematocrit 28.9 % (42.0-52.0); Hemoglobin 9.5 g/dL (14.0-18.0); Mean Corpuscular HGB CONC 32.9 g/dL (32.0-36.0); Mean Corpuscular Hemoglobin 29.1 pg (27.0-31.0); Mean Corpuscular Volume 88.7 fL (78.0-98.0); Mean Platelet Volume 8.6 fL (7.4-10.4); Platelet Count 716 10x3/uL (130-400); RBC Distribution Width 13.5 % (11.5-14.5); Red Blood Cell (RBC) Count 3.26 mill/uL (4.70-6.10)
[2024-02-20 05:32] LABS: Anion Gap 12 mmol/L (10-20); BUN (Urea Nitrogen) 39 mg/dL (8.4-25.7); Calc. Creatinine Clearance 55 mL/min (70-130); Calcium 9.4 mg/dL (7.8-10.44); Carbon Dioxide 28 mmol/L (23-31); Chloride 100 mmol/L (98-107); Estimated GFR 52; Glucose 130 mg/dL (80-115); Potassium 4.2 mmol/L (3.5-5.1); Sodium 136 mmol/L (136-145)
[2024-02-20] MEDS: Sodium Chloride 0.45% 1,000 ML IV SCH (11:28)
[2024-02-21 04:30] LABS: #Basophils 0.07 10x3/uL (0.0-0.2); %Basophils 0.8 % (0.0-1.0); %Eosinophils 8.1 % (0.0-10.0); %Monocytes 11.2 % (0.0-10.0); %Neutrophils 52.6 % (42.0-75.0); Hematocrit 26.2 % (42.0-52.0); Hemoglobin 8.3 g/dL (14.0-18.0); Mean Corpuscular HGB CONC 31.7 g/dL (32.0-36.0); Mean Corpuscular Hemoglobin 28.6 pg (27.0-31.0); Mean Corpuscular Volume 90.3 fL (78.0-98.0); Mean Platelet Volume 8.7 fL (7.4-10.4); Platelet Count 598 10x3/uL (130-400); RBC Distribution Width 13.7 % (11.5-14.5)
[2024-02-21 04:43] LABS: Anion Gap 13 mmol/L (10-20); BUN (Urea Nitrogen) 41 mg/dL (8.4-25.7); Calc. Creatinine Clearance 50 mL/min (70-130); Calcium 8.9 mg/dL (7.8-10.44); Carbon Dioxide 27 mmol/L (23-31); Chloride 100 mmol/L (98-107); Estimated GFR 47; Glucose 121 mg/dL (80-115); Potassium 4.2 mmol/L (3.5-5.1); Sodium 136 mmol/L (136-145)
[2024-02-21] MEDS: Sodium Chloride 0.9% 1,000 ML IV SCH (09:30)
[2024-02-22 04:58] LABS: #Basophils 0.07 10x3/uL (0.0-0.2); %Basophils 0.7 % (0.0-1.0); %Lymphocytes 25.2 % (21.0-51.0); %Monocytes 7.5 % (0.0-10.0); %Neutrophils 59.3 % (42.0-75.0); Hematocrit 27.9 % (42.0-52.0); Hemoglobin 9.2 g/dL (14.0-18.0); Mean Corpuscular Hemoglobin 29.2 pg (27.0-31.0); Mean Corpuscular Volume 88.6 fL (78.0-98.0); Mean Platelet Volume 9.5 fL (7.4-10.4); Platelet Count 612 10x3/uL (130-400); RBC Distribution Width 13.5 % (11.5-14.5); Red Blood Cell (RBC) Count 3.15 mill/uL (4.70-6.10)
[2024-02-22 05:13] LABS: Anion Gap 11 mmol/L (10-20); BUN (Urea Nitrogen) 29 mg/dL (8.4-25.7); Calc. Creatinine Clearance 90 mL/min (70-130); Calcium 8.9 mg/dL (7.8-10.44); Carbon Dioxide 26 mmol/L (23-31); Chloride 106 mmol/L (98-107); Estimated GFR 93; Glucose 93 mg/dL (80-115); Potassium 4.7 mmol/L (3.5-5.1); Sodium 138 mmol/L (136-145)
[2024-02-22] MEDS: ALPRAZolam 0.25 MG TAB PO SCH (08:44)
[2024-02-23] MEDS ORDERED: ALPRAZolam 0.25 MG TAB ONE (21:00)
[2024-02-23] MEDS ORDERED: Famotidine 20 MG TAB ONE (21:00)
[2024-02-23] MEDS ORDERED: Atorvastatin Calcium 40 MG TAB ONE (21:00)
[2024-02-24] MEDS ORDERED: Enoxaparin 40 MG (0.4 mL) SYRINGE ONE (09:00)
[2024-02-24] MEDS ORDERED: Scopolamine 1 mg/72 hour Patch ONE (09:00)
[2024-02-24] MEDS ORDERED: ALPRAZolam 0.25 MG TAB ONE ×3 (09:00→21:00)
[2024-02-24] MEDS ORDERED: Famotidine 20 MG TAB ONE ×2 (09:00→21:00)
[2024-02-24] MEDS ORDERED: Amlodipine 5 MG TAB ONE (09:00)
[2024-02-24] MEDS ORDERED: Aspirin Chewable 81 MG TAB ONE (09:00)
[2024-02-24] MEDS ORDERED: Atorvastatin Calcium 40 MG TAB ONE (21:00)
[2024-02-25 02:59] LABS: #Basophils 0.09 10x3/uL (0.0-0.2); %Eosinophils 8.2 % (0.0-10.0); %Lymphocytes 30.2 % (21.0-51.0); %Monocytes 8.5 % (0.0-10.0); %Neutrophils 51.9 % (42.0-75.0); Mean Corpuscular HGB CONC 32.3 g/dL (32.0-36.0); Mean Corpuscular Hemoglobin 28.7 pg (27.0-31.0); Mean Corpuscular Volume 88.8 fL (78.0-98.0); Mean Platelet Volume 8.8 fL (7.4-10.4); Platelet Count 536 10x3/uL (130-400); Red Blood Cell (RBC) Count 3.49 mill/uL (4.70-6.10)
[2024-02-25 03:56] LABS: Anion Gap 11 mmol/L (10-20); BUN (Urea Nitrogen) 17 mg/dL (8.4-25.7); Calc. Creatinine Clearance 89 mL/min (70-130); Calcium 9.4 mg/dL (7.8-10.44); Carbon Dioxide 24 mmol/L (23-31); Chloride 103 mmol/L (98-107); Estimated GFR 93; Glucose 92 mg/dL (80-115); Potassium 4.2 mmol/L (3.5-5.1); Sodium 134 mmol/L (136-145)
[2024-02-25 07:49] LABS: Anion Gap 10 mmol/L (10-20); BUN (Urea Nitrogen) 20 mg/dL (8.4-25.7); Calc. Creatinine Clearance 98 mL/min (70-130); Calcium 8.9 mg/dL (7.8-10.44); Carbon Dioxide 26 mmol/L (23-31); Chloride 102 mmol/L (98-107); Estimated GFR 95; Glucose 85 mg/dL (80-115); Potassium 4.1 mmol/L (3.5-5.1); Sodium 134 mmol/L (136-145)
[2024-02-25] MEDS: Glycopyrrolate 0.4 MG/ 2 ML VIAL SLOW IVP PRN (12:55)
[2024-02-25 22:44] LABS: #Basophils 0.06 10x3/uL (0.0-0.2); %Basophils 0.6 % (0.0-1.0); %Eosinophils 8.3 % (0.0-10.0); %Lymphocytes 24.7 % (21.0-51.0); %Monocytes 7.7 % (0.0-10.0); %Neutrophils 58.2 % (42.0-75.0); Hematocrit 28.4 % (42.0-52.0); Hemoglobin 9.3 g/dL (14.0-18.0); Mean Corpuscular HGB CONC 32.7 g/dL (32.0-36.0); Mean Corpuscular Volume 88.5 fL (78.0-98.0); Mean Platelet Volume 9.6 fL (7.4-10.4); Platelet Count 560 10x3/uL (130-400); RBC Distribution Width 12.9 % (11.5-14.5); Red Blood Cell (RBC) Count 3.21 mill/uL (4.70-6.10)
[2024-02-26 04:35] LABS: #Basophils 0.08 10x3/uL (0.0-0.2); %Basophils 0.8 % (0.0-1.0); %Lymphocytes 25.3 % (21.0-51.0); %Monocytes 8.9 % (0.0-10.0); %Neutrophils 59.8 % (42.0-75.0); Hematocrit 27.8 % (42.0-52.0); Hemoglobin 9.1 g/dL (14.0-18.0); Mean Corpuscular HGB CONC 32.7 g/dL (32.0-36.0); Mean Corpuscular Hemoglobin 28.9 pg (27.0-31.0); Mean Corpuscular Volume 88.3 fL (78.0-98.0); Platelet Count 432 10x3/uL (130-400); RBC Distribution Width 12.9 % (11.5-14.5); Red Blood Cell (RBC) Count 3.15 mill/uL (4.70-6.10)
[2024-02-26 04:53] LABS: Anion Gap 12 mmol/L (10-20); BUN (Urea Nitrogen) 17 mg/dL (8.4-25.7); Calc. Creatinine Clearance 92 mL/min (70-130); Calcium 9.1 mg/dL (7.8-10.44); Carbon Dioxide 25 mmol/L (23-31); Chloride 101 mmol/L (98-107); Estimated GFR 93; Glucose 88 mg/dL (80-115); Potassium 4.2 mmol/L (3.5-5.1); Sodium 134 mmol/L (136-145)
[2024-02-27] MEDS: Sertraline 100 MG TAB PO SCH (09:26)
[2024-02-27] MEDS: Glycopyrrolate 0.4 MG/ 2 ML VIAL SLOW IVP SCH (09:26)
[2024-02-27 10:42] LABS: #Basophils 0.07 10x3/uL (0.0-0.2); %Basophils 0.8 % (0.0-1.0); %Eosinophils 6.9 % (0.0-10.0); %Lymphocytes 29.5 % (21.0-51.0); %Monocytes 10.2 % (0.0-10.0); %Neutrophils 52.4 % (42.0-75.0); Hematocrit 26.9 % (42.0-52.0); Hemoglobin 8.9 g/dL (14.0-18.0); Mean Corpuscular HGB CONC 33.1 g/dL (32.0-36.0); Mean Corpuscular Hemoglobin 29.1 pg (27.0-31.0); Mean Corpuscular Volume 87.9 fL (78.0-98.0); Platelet Count 404 10x3/uL (130-400); RBC Distribution Width 13.2 % (11.5-14.5); Red Blood Cell (RBC) Count 3.06 mill/uL (4.70-6.10)
[2024-02-27 11:01] LABS: Anion Gap 10 mmol/L (10-20); BUN (Urea Nitrogen) 19 mg/dL (8.4-25.7); Calc. Creatinine Clearance 91 mL/min (70-130); Calcium 8.9 mg/dL (7.8-10.44); Carbon Dioxide 27 mmol/L (23-31); Chloride 101 mmol/L (98-107); Estimated GFR 94; Glucose 101 mg/dL (80-115); Potassium 4.1 mmol/L (3.5-5.1); Sodium 134 mmol/L (136-145)
[2024-02-28 03:34] LABS: #Basophils 0.05 10x3/uL (0.0-0.2); %Basophils 0.7 % (0.0-1.0); %Eosinophils 7.5 % (0.0-10.0); %Lymphocytes 25.9 % (21.0-51.0); %Neutrophils 53.8 % (42.0-75.0); Hematocrit 27.4 % (42.0-52.0); Hemoglobin 8.8 g/dL (14.0-18.0); Mean Corpuscular HGB CONC 32.1 g/dL (32.0-36.0); Mean Corpuscular Hemoglobin 28.1 pg (27.0-31.0); Mean Corpuscular Volume 87.5 fL (78.0-98.0); Mean Platelet Volume 9.3 fL (7.4-10.4); Platelet Count 375 10x3/uL (130-400); Red Blood Cell (RBC) Count 3.13 mill/uL (4.70-6.10)
[2024-02-28 03:56] LABS: Anion Gap 11 mmol/L (10-20); BUN (Urea Nitrogen) 18 mg/dL (8.4-25.7); Calc. Creatinine Clearance 90 mL/min (70-130); Calcium 8.8 mg/dL (7.8-10.44); Carbon Dioxide 27 mmol/L (23-31); Chloride 99 mmol/L (98-107); Estimated GFR 94; Glucose 103 mg/dL (80-115); Potassium 4.1 mmol/L (3.5-5.1); Sodium 133 mmol/L (136-145)
[2024-02-29 05:32] LABS: #Basophils 0.07 10x3/uL (0.0-0.2); %Basophils 0.9 % (0.0-1.0); %Eosinophils 7.6 % (0.0-10.0); %Lymphocytes 26.2 % (21.0-51.0); %Monocytes 10.1 % (0.0-10.0); %Neutrophils 54.9 % (42.0-75.0); Hematocrit 28.8 % (42.0-52.0); Hemoglobin 9.6 g/dL (14.0-18.0); Mean Corpuscular HGB CONC 33.3 g/dL (32.0-36.0); Mean Corpuscular Hemoglobin 28.7 pg (27.0-31.0); Mean Corpuscular Volume 86.2 fL (78.0-98.0); Mean Platelet Volume 9.9 fL (7.4-10.4); Platelet Count 378 10x3/uL (130-400); RBC Distribution Width 13.1 % (11.5-14.5); Red Blood Cell (RBC) Count 3.34 mill/uL (4.70-6.10)
[2024-02-29 05:53] LABS: Anion Gap 9 mmol/L (10-20); BUN (Urea Nitrogen) 17 mg/dL (8.4-25.7); Calc. Creatinine Clearance 82 mL/min (70-130); Carbon Dioxide 28 mmol/L (23-31); Chloride 99 mmol/L (98-107); Estimated GFR 91; Glucose 100 mg/dL (80-115); Potassium 3.9 mmol/L (3.5-5.1); Sodium 132 mmol/L (136-145)
[2024-03-01 06:06] LABS: #Basophils 0.08 10x3/uL (0.0-0.2); %Eosinophils 6.8 % (0.0-10.0); %Lymphocytes 32.9 % (21.0-51.0); %Monocytes 13.9 % (0.0-10.0); %Neutrophils 45.1 % (42.0-75.0); Hematocrit 26.5 % (42.0-52.0); Hemoglobin 8.6 g/dL (14.0-18.0); Mean Corpuscular HGB CONC 32.5 g/dL (32.0-36.0); Mean Corpuscular Hemoglobin 28.6 pg (27.0-31.0); Mean Platelet Volume 9.4 fL (7.4-10.4); Platelet Count 373 10x3/uL (130-400); RBC Distribution Width 13.3 % (11.5-14.5); Red Blood Cell (RBC) Count 3.01 mill/uL (4.70-6.10)
[2024-03-01 06:36] LABS: Anion Gap 12 mmol/L (10-20); BUN (Urea Nitrogen) 20 mg/dL (8.4-25.7); Calc. Creatinine Clearance 83 mL/min (70-130); Carbon Dioxide 28 mmol/L (23-31); Chloride 103 mmol/L (98-107); Estimated GFR 93; Glucose 78 mg/dL (80-115); Potassium 4.2 mmol/L (3.5-5.1); Sodium 139 mmol/L (136-145)
[2024-03-01 07:36] VITALS: BMI 25.0
[2024-03-01] MEDS: GLYCOPYRROLATE/PF 0.2 MG/ML VIAL SLOW IVP SCH (09:39)
[2024-03-01] MEDS: Glycopyrrolate 0.4 MG/ 2 ML VIAL SLOW IVP SCH (15:30)
[2024-03-02] MEDS: Sodium Chloride 0.9% 1,000 ML IV SCH (04:11)
[2024-03-02 05:33] LABS: #Basophils 0.06 10x3/uL (0.0-0.2); %Basophils 0.7 % (0.0-1.0); %Eosinophils 7.3 % (0.0-10.0); %Monocytes 13.7 % (0.0-10.0); %Neutrophils 51.1 % (42.0-75.0); Hematocrit 26.2 % (42.0-52.0); Hemoglobin 8.5 g/dL (14.0-18.0); Mean Corpuscular HGB CONC 32.4 g/dL (32.0-36.0); Mean Corpuscular Hemoglobin 28.7 pg (27.0-31.0); Mean Corpuscular Volume 88.5 fL (78.0-98.0); Mean Platelet Volume 9.1 fL (7.4-10.4); Platelet Count 348 10x3/uL (130-400); RBC Distribution Width 13.2 % (11.5-14.5); Red Blood Cell (RBC) Count 2.96 mill/uL (4.70-6.10)
[2024-03-02 06:31] LABS: Anion Gap 10 mmol/L (10-20); BUN (Urea Nitrogen) 17 mg/dL (8.4-25.7); Calc. Creatinine Clearance 91 mL/min (70-130); Calcium 8.8 mg/dL (7.8-10.44); Carbon Dioxide 28 mmol/L (23-31); Chloride 102 mmol/L (98-107); Estimated GFR 95; Glucose 91 mg/dL (80-115); Potassium 4.2 mmol/L (3.5-5.1); Sodium 136 mmol/L (136-145)
[2024-03-02] MEDS ORDERED: PROPOFOL 200 MG/20 ML VIAL ONE (09:30)
[2024-03-02] MEDS: fentaNYL 50 mcg/mL 1 mL Vial ONE (11:23)
[2024-03-02] MEDS: Midazolam HCl 2 mg/2 ml Vial ONE (11:24)
[2024-03-03 04:18] LABS: #Basophils 0.06 10x3/uL (0.0-0.2); %Basophils 0.8 % (0.0-1.0); %Eosinophils 7.8 % (0.0-10.0); %Lymphocytes 27.6 % (21.0-51.0); %Monocytes 10.9 % (0.0-10.0); %Neutrophils 52.5 % (42.0-75.0); Hematocrit 27.2 % (42.0-52.0); Mean Corpuscular HGB CONC 33.1 g/dL (32.0-36.0); Mean Corpuscular Hemoglobin 28.8 pg (27.0-31.0); Mean Corpuscular Volume 87.2 fL (78.0-98.0); Mean Platelet Volume 9.1 fL (7.4-10.4); Platelet Count 356 10x3/uL (130-400); RBC Distribution Width 13.2 % (11.5-14.5); Red Blood Cell (RBC) Count 3.12 mill/uL (4.70-6.10)
[2024-03-03 04:36] LABS: Anion Gap 9 mmol/L (10-20); BUN (Urea Nitrogen) 15 mg/dL (8.4-25.7); Calc. Creatinine Clearance 94 mL/min (70-130); Calcium 8.8 mg/dL (7.8-10.44); Carbon Dioxide 26 mmol/L (23-31); Chloride 102 mmol/L (98-107); Estimated GFR 96; Glucose 116 mg/dL (80-115); Potassium 3.9 mmol/L (3.5-5.1); Sodium 133 mmol/L (136-145)
[2024-03-03 05:46] LABS: Anion Gap 12 mmol/L (10-20); BUN (Urea Nitrogen) 23 mg/dL (8.4-25.7); Carbon Dioxide 24 mmol/L (23-31); Chloride 105 mmol/L (98-107); Potassium 4.4 mmol/L (3.5-5.1); Sodium 137 mmol/L (136-145)
[2024-03-03 05:48] LABS: Calc. Creatinine Clearance 89 mL/min (70-130); Estimated GFR 93; Glucose 113 mg/dL (80-115)
[2024-03-03 05:49] LABS: Calcium 9.2 mg/dL (7.6-10.4); Hematocrit 30.9 % (42.0-52.0); Hemoglobin 9.8 g/dL (14.0-18.0); Mean Corpuscular HGB CONC 31.7 g/dL (32.0-36.0); Mean Corpuscular Hemoglobin 28.4 pg (27.0-31.0); Mean Corpuscular Volume 89.6 fL (78.0-98.0); Platelet Count 556 10x3/uL (130-400); RBC Distribution Width 13.1 % (11.5-14.5); Red Blood Cell (RBC) Count 3.45 mill/uL (4.70-6.10)
[2024-03-03 05:50] LABS: #Basophils 0.05 10x3/uL (0.0-0.2); %Basophils 0.7 % (0.0-1.0); %Eosinophils 9.7 % (0.0-10.0); %Lymphocytes 29.9 % (21.0-51.0); %Monocytes 8.3 % (0.0-10.0); %Neutrophils 51.3 % (42.0-75.0); Mean Platelet Volume 8.6 fL (7.4-10.4)
[2024-03-03] MEDS: Sacubitril 24MG/Valsartan 26 MG TAB PO SCH (08:19)
[2024-03-03 15:08] VITALS: BMI 25.7
[2024-03-04 03:59] LABS: #Basophils 0.06 10x3/uL (0.0-0.2); %Basophils 0.7 % (0.0-1.0); %Eosinophils 7.3 % (0.0-10.0); %Lymphocytes 31.2 % (21.0-51.0); %Monocytes 11.4 % (0.0-10.0); %Neutrophils 48.9 % (42.0-75.0); Hematocrit 27.1 % (42.0-52.0); Hemoglobin 8.9 g/dL (14.0-18.0); Mean Corpuscular HGB CONC 32.8 g/dL (32.0-36.0); Mean Corpuscular Hemoglobin 28.4 pg (27.0-31.0); Mean Corpuscular Volume 86.6 fL (78.0-98.0); Mean Platelet Volume 9.4 fL (7.4-10.4); Platelet Count 342 10x3/uL (130-400); RBC Distribution Width 13.1 % (11.5-14.5); Red Blood Cell (RBC) Count 3.13 mill/uL (4.70-6.10)
[2024-03-04 04:17] LABS: Anion Gap 11 mmol/L (10-20); BUN (Urea Nitrogen) 16 mg/dL (8.4-25.7); Calc. Creatinine Clearance 98 mL/min (70-130); Calcium 8.9 mg/dL (7.8-10.44); Carbon Dioxide 26 mmol/L (23-31); Chloride 101 mmol/L (98-107); Estimated GFR 96; Glucose 117 mg/dL (80-115); Potassium 3.9 mmol/L (3.5-5.1); Sodium 134 mmol/L (136-145)
[2024-03-04] MEDS: ALPRAZolam 0.25 MG TAB PO PRN (10:05)
[2024-03-04] MEDS: Glycopyrrolate 0.4 MG/ 2 ML VIAL SLOW IVP SCH (17:10)
[2024-03-06 04:40] LABS: #Basophils 0.07 10x3/uL (0.0-0.2); %Basophils 0.7 % (0.0-1.0); %Eosinophils 4.4 % (0.0-10.0); %Lymphocytes 22.8 % (21.0-51.0); %Monocytes 12.5 % (0.0-10.0); %Neutrophils 59.3 % (42.0-75.0); Hematocrit 27.1 % (42.0-52.0); Hemoglobin 8.7 g/dL (14.0-18.0); Mean Corpuscular HGB CONC 32.1 g/dL (32.0-36.0); Mean Corpuscular Hemoglobin 28.3 pg (27.0-31.0); Mean Corpuscular Volume 88.3 fL (78.0-98.0); Mean Platelet Volume 9.4 fL (7.4-10.4); Platelet Count 336 10x3/uL (130-400); RBC Distribution Width 13.2 % (11.5-14.5); Red Blood Cell (RBC) Count 3.07 mill/uL (4.70-6.10)
[2024-03-06 04:57] LABS: Anion Gap 10 mmol/L (10-20); BUN (Urea Nitrogen) 17 mg/dL (8.4-25.7); Calc. Creatinine Clearance 99 mL/min (70-130); Carbon Dioxide 28 mmol/L (23-31); Chloride 102 mmol/L (98-107); Estimated GFR 97; Glucose 141 mg/dL (80-115); Potassium 3.7 mmol/L (3.5-5.1); Sodium 136 mmol/L (136-145)
[2024-03-07] MEDS: Glycopyrrolate 0.4 MG/ 2 ML VIAL SLOW IVP SCH (17:22)
[2024-03-08 04:12] LABS: #Basophils 0.07 10x3/uL (0.0-0.2); %Basophils 0.7 % (0.0-1.0); %Eosinophils 4.5 % (0.0-10.0); %Lymphocytes 23.2 % (21.0-51.0); %Monocytes 11.5 % (0.0-10.0); %Neutrophils 59.7 % (42.0-75.0); Hematocrit 26.6 % (42.0-52.0); Hemoglobin 8.6 g/dL (14.0-18.0); Mean Corpuscular HGB CONC 32.3 g/dL (32.0-36.0); Mean Corpuscular Hemoglobin 28.4 pg (27.0-31.0); Mean Corpuscular Volume 87.8 fL (78.0-98.0); Mean Platelet Volume 9.4 fL (7.4-10.4); Platelet Count 350 10x3/uL (130-400); RBC Distribution Width 13.3 % (11.5-14.5); Red Blood Cell (RBC) Count 3.03 mill/uL (4.70-6.10)
[2024-03-08 04:26] LABS: Anion Gap 12 mmol/L (10-20); BUN (Urea Nitrogen) 22 mg/dL (8.4-25.7); Calc. Creatinine Clearance 91 mL/min (70-130); Carbon Dioxide 26 mmol/L (23-31); Chloride 102 mmol/L (98-107); Estimated GFR 94; Glucose 109 mg/dL (80-115); Potassium 4.3 mmol/L (3.5-5.1); Sodium 136 mmol/L (136-145)
[2024-03-10 05:58] LABS: #Basophils 0.07 10x3/uL (0.0-0.2); %Basophils 0.7 % (0.0-1.0); %Eosinophils 7.1 % (0.0-10.0); %Lymphocytes 24.1 % (21.0-51.0); %Monocytes 12.4 % (0.0-10.0); %Neutrophils 55.4 % (42.0-75.0); Hematocrit 25.6 % (42.0-52.0); Hemoglobin 8.3 g/dL (14.0-18.0); Mean Corpuscular HGB CONC 32.4 g/dL (32.0-36.0); Mean Corpuscular Hemoglobin 28.6 pg (27.0-31.0); Mean Corpuscular Volume 88.3 fL (78.0-98.0); Mean Platelet Volume 9.2 fL (7.4-10.4); Platelet Count 352 10x3/uL (130-400); RBC Distribution Width 13.3 % (11.5-14.5)
[2024-03-10 06:17] LABS: Anion Gap 10 mmol/L (10-20); BUN (Urea Nitrogen) 25 mg/dL (8.4-25.7); Calc. Creatinine Clearance 93 mL/min (70-130); Calcium 8.9 mg/dL (7.8-10.44); Carbon Dioxide 29 mmol/L (23-31); Chloride 102 mmol/L (98-107); Estimated GFR 95; Glucose 121 mg/dL (80-115); Potassium 3.9 mmol/L (3.5-5.1); Sodium 137 mmol/L (136-145)
[2024-03-11 12:19] VITALS: BP 94/57
[2024-03-13 08:39] LABS: Hematocrit 27.4 % (42.0-52.0); Hemoglobin 8.9 g/dL (14.0-18.0); Mean Corpuscular HGB CONC 32.5 g/dL (32.0-36.0); Mean Corpuscular Hemoglobin 28.3 pg (27.0-31.0); Mean Corpuscular Volume 87.3 fL (78.0-98.0); Mean Platelet Volume 8.8 fL (7.4-10.4); Platelet Count 379 10x3/uL (130-400); RBC Distribution Width 13.4 % (11.5-14.5); Red Blood Cell (RBC) Count 3.14 mill/uL (4.70-6.10)
[2024-03-13 08:40] LABS: #Basophils 0.07 10x3/uL (0.0-0.2); %Basophils 0.8 % (0.0-1.0); %Eosinophils 4.1 % (0.0-10.0); %Lymphocytes 17.4 % (21.0-51.0); %Monocytes 14.1 % (0.0-10.0); %Neutrophils 63.1 % (42.0-75.0)
[2024-03-13 10:40] VITALS: TEMP 98.7
[2024-03-13 12:27] LABS: Anion Gap 13 mmol/L (10-20); BUN (Urea Nitrogen) 20 mg/dL (8.4-25.7); Calc. Creatinine Clearance 75 mL/min (70-130); Calcium 9.1 mg/dL (7.8-10.44); Carbon Dioxide 28 mmol/L (23-31); Chloride 102 mmol/L (98-107); Estimated GFR 79; Glucose 108 mg/dL (80-115); Potassium 4.2 mmol/L (3.5-5.1); Sodium 139 mmol/L (136-145)
== END 2024-03-13 14:35 | disposition short-term general hospital (02) | DRG 4 ==
LOC: ERS 00:50 → 2SE 02:51 → OBSVTOIN 02:52 → CCU 07:50
PROVIDERS: ADMIT Internal Medicine; ATTEND Internal Medicine
PROC: 5A1955Z Respiratory Ventilation, Greater than 96 Consecutive Hours (ICD-10-PCS; 2024-01-30)
PROC: 0BH17EZ Insertion of Endotracheal Airway into Trachea, Via Natural or Artificial Opening (ICD-10-PCS; 2024-01-30)
PROC: 5A12012 Performance of Cardiac Output, Single, Manual (ICD-10-PCS; 2024-01-30)
PROC: 4A133R1 Monitoring of Arterial Saturation, Peripheral, Percutaneous Approach (ICD-10-PCS; 2024-01-30)
PROC: 3E033XZ Introduction of Vasopressor into Peripheral Vein, Percutaneous Approach (ICD-10-PCS; 2024-01-30)
PROC: 0BH17EZ Insertion of Endotracheal Airway into Trachea, Via Natural or Artificial Opening (ICD-10-PCS; 2024-02-07)
PROC: 0B113F4 Bypass Trachea to Cutaneous with Tracheostomy Device, Percutaneous Approach (ICD-10-PCS; principal; 2024-02-08)
PROC: 0DH63UZ Insertion of Feeding Device into Stomach, Percutaneous Approach (ICD-10-PCS; 2024-02-08)
PROC: 3E0G7GC Introduction of Other Therapeutic Substance into Upper GI, Via Natural or Artificial Opening (ICD-10-PCS; 2024-02-13)
DX: I63.512 Cerebral infarction due to unspecified occlusion or stenosis of left middle cerebral artery (principal); A41.9 Sepsis, unspecified organism; G93.41 Metabolic encephalopathy; I46.9 Cardiac arrest, cause unspecified; J96.01 Acute respiratory failure with hypoxia; J69.0 Pneumonitis due to inhalation of food and vomit; I50.22 Chronic systolic (congestive) heart failure; G81.93 Hemiplegia, unspecified affecting right nondominant side; J95.01 Hemorrhage from tracheostomy stoma; Z99.11 Dependence on respirator [ventilator] status; R13.12 Dysphagia, oropharyngeal phase; R33.9 Retention of urine, unspecified; E78.5 Hyperlipidemia, unspecified; I11.0 Hypertensive heart disease with heart failure; J44.9 Chronic obstructive pulmonary disease, unspecified; I16.0 Hypertensive urgency; F17.210 Nicotine dependence, cigarettes, uncomplicated; R29.810 Facial weakness; I65.01 Occlusion and stenosis of right vertebral artery; E11.9 Type 2 diabetes mellitus without complications; Z79.01 Long term (current) use of anticoagulants; Z79.899 Other long term (current) drug therapy; Z86.718 Personal history of other venous thrombosis and embolism; B96.20 Unspecified Escherichia coli [E. coli] as the cause of diseases classified elsewhere; R29.703 NIHSS score 3
CPT/HCPCS: 36415; 36416; 36600; 70450; 70496; 70498; 70551; 71045; 74018; 80048; 80053; 80061; 82805; 83036; 83605; 84484; 85025; 85610; 85730; 87040; 87070; 87077; 87081; 87186; 87205; 93005; 93010; 93306; 93355; 94002; 94003; 96374; B4087; J0171; J0360; J0696; J1650; J1815; J1940; J2060; J2185; J2250; J2272; J2405; J2543; J2704; J3010; J3490; J7030; J7120; J7999; Q9967